=== PATIENT | female | born 2000 | race Caucasian/White ===

== ENCOUNTER 2020-04-29 16:11 | Emergency (ER) | payer OTHER, BC, SELFPAY ==
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
[2020-04-29 17:09] VITALS: BP 132/76; PULSE 88; RESP 16; TEMP 36.2; O2SAT 98
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
[2020-04-29] MEDS: CYCLOBENZAPRINE HCL 5 MG TABLET PO (17:59)
[2020-04-29] MEDS: IBUPROFEN 600 MG TABLET PO (17:59)
[2020-04-29 19:31] VITALS: BP 122/70; PULSE 70; RESP 18; O2SAT 98
== END 2020-04-29 19:32 | disposition home or self-care (01) ==
PROVIDERS: Emergency Provider General Practice
DX: S16.1XXA Strain of muscle, fascia and tendon at neck level, initial encounter (principal); V43.53XA Car driver injured in collision with pick-up truck in traffic accident, initial encounter
CPT/HCPCS: 72125; 99284; A9270

== ENCOUNTER 2022-03-03 14:49 | Outpatient (CLI) | payer BC, SELFPAY ==
--- NOTE | 2022-03-03 15:01 | ECG_ITS ---
Measurements Intervals [place] Rate: 113 P: 60 MO: 138 QRS: 47 QRSD: 86 T: 55 QT: 314 QTc: 431 Interpretive Statements SINUS TACHYCARDIA POSSIBLE LEFT ATRIAL ENLARGEMENT INCOMPLETE RIGHT BUNDLE BRANCH BLOCK BASELINE WANDER- V4 ABNORMAL ECG Electronically Signed On 03-03-2022 15:16:04 CDT by Darío Carpenter D.O.
== END 2022-03-03 14:50 | disposition home or self-care (01) ==
LOC: ANHCARD 14:53
PROVIDERS: PCP Family Medicine; Visit Provider Nurse Practitioner
DX: Z01.818 Encounter for other preprocedural examination (principal); I45.10 Unspecified right bundle-branch block
CPT/HCPCS: 93005

== ENCOUNTER 2023-05-27 10:42 | Outpatient (CLI) | payer BC, SELFPAY ==
[2023-05-27 17:20] LABS: Alanine Aminotransferase 38 U/L (6-35); Alkaline Phosphatase 45 U/L (38-126); Anion Gap 4 mmol/L (8-16); Aspartate Amino Transferase 42 U/L (14-36); Bilirubin,Total 0.5 mg/dL (0.2-1.3); Blood Urea Nitrogen 14 mg/dL (7-17); Calcium 8.7 mg/dL (8.4-10.2); Carbon Dioxide 28 mmol/L (22-30); Chloride 106 mmol/L (98-107); Cholesterol 160 mg/dL (0-200); Estimated Glomerular Filt Rate > 60; Glucose 96 mg/dL (65-110); HDL Direct 32 mg/dL; Potassium 4.8 mmol/L (3.4-5.0); Sodium 138 mmol/L (137-145); Triglycerides 115 mg/dL (<150)
[2023-05-27 17:22] LABS: Basophils Percent Auto 0.4 % (0.2-1.2); Eosinophils Absolute Auto 0.1 K/mm3 (0-0.3); Eosinophils Percent Auto 1.4 % (0-4.4); Hematocrit 41.6 % (37.0-47.0); Hemoglobin 13.4 g/dL (12.0-15.0); Immature Granulocyte Absolute 0.01 K/mm3 (0.00-0.031); Immature Granulocyte Percent A 0.2 % (0-0.5); Lymphocytes Absolute Auto 2.29 K/mm3 (0.9-3.2); Mean Corpuscular HGB Conc 32.2 g/dl (32-36); Mean Corpuscular Hemoglobin 28.8 pg (26-34); Mean Corpuscular Volume 89.3 fl (80-100); Mean Platelet Volume 9.8 fl (7.4-10.4); Monocytes Absolute Auto 0.4 K/mm3 (0.1-0.6); Monocytes Percent Auto 7.5 % (2.6-8.5); Neutrophils Absolute Auto 2.8 K/mm3 (1.3-6.7); Neutrophils Percent Auto 49.5 % (45.5-73.1); Platelet Count Result 256 k/mm3 (150-375); Red Blood Count 4.66 M/mm3 (4.2-5.4); Red Cell Distribution Width 12.4 % (11.5-14.5); White Blood Count 5.6 K/mm3 (4.5-10.0)
[2023-05-27 17:29] LABS: LDL Cholesterol Direct 104 mg/dL
[2023-05-27 17:38] LABS: Vitamin D 25 Hydroxy 41.3 ng/mL
[2023-05-27 17:44] LABS: Thyroid Stimulating Hormone 0.876 uIU/mL (0.465-4.680)
== END 2023-05-27 10:43 | disposition home or self-care (01) ==
LOC: ANHGOSHLAB 10:45
PROVIDERS: PCP Family Medicine; Visit Provider Nurse Practitioner Family
DX: Z00.00 Encounter for general adult medical examination without abnormal findings (principal); Z13.21 Encounter for screening for nutritional disorder; E53.8 Deficiency of other specified B group vitamins; Z13.29 Encounter for screening for other suspected endocrine disorder; Z13.220 Encounter for screening for lipoid disorders; Z13.1 Encounter for screening for diabetes mellitus; I10 Essential (primary) hypertension
CPT/HCPCS: 36415; 80053; 80061; 82306; 82607; 83036; 84443; 85025

== ENCOUNTER 2024-03-01 08:13 | Outpatient (CLI) | payer OTHER, SELFPAY ==
[2024-03-01 19:34] LABS: Basophils Absolute Auto 0.1 K/mm3 (0.0-0.1); Basophils Percent Auto 0.7 % (0.2-1.2); Eosinophils Absolute Auto 0.5 K/mm3 (0-0.3); Eosinophils Percent Auto 7.2 % (0-4.4); Hematocrit 40.1 % (37.0-47.0); Hemoglobin 12.9 g/dL (12.0-15.0); Immature Granulocyte Absolute 0.01 K/mm3 (0.00-0.031); Immature Granulocyte Percent A 0.1 % (0-0.5); Lymphocytes Absolute Auto 2.78 K/mm3 (0.9-3.2); Lymphocytes Percent Auto 39.3 % (18.3-44.2); Mean Corpuscular HGB Conc 32.2 g/dl (32-36); Mean Corpuscular Hemoglobin 29.3 pg (26-34); Mean Corpuscular Volume 90.9 fl (80-100); Mean Platelet Volume 9.5 fl (7.4-10.4); Monocytes Absolute Auto 0.6 K/mm3 (0.1-0.6); Monocytes Percent Auto 8.8 % (2.6-8.5); Neutrophils Absolute Auto 3.1 K/mm3 (1.3-6.7); Neutrophils Percent Auto 43.9 % (45.5-73.1); Platelet Count Result 298 k/mm3 (150-375); Red Blood Count 4.41 M/mm3 (4.2-5.4); Red Cell Distribution Width 12.3 % (11.5-14.5); White Blood Count 7.1 K/mm3 (4.5-10.0)
[2024-03-01 20:33] LABS: Vitamin D 25 Hydroxy 29.8 ng/mL
[2024-03-01 20:41] LABS: Alanine Aminotransferase 17 U/L (6-35); Albumin Level 3.9 g/dL (3.5-5.1); Alkaline Phosphatase 63 U/L (38-126); Anion Gap 5 mmol/L (4-12); Aspartate Amino Transferase 22 U/L (14-36); Bilirubin,Total 0.4 mg/dL (0.2-1.3); Blood Urea Nitrogen 13 mg/dL (7-17); Calcium 9.3 mg/dL (8.4-10.2); Carbon Dioxide 28 mmol/L (22-30); Chloride 109 mmol/L (98-107); Cholesterol 171 mg/dL (0-200); Estimated Glomerular Filt Rate > 60; Glucose 91 mg/dL (65-110); HDL Direct 44 mg/dL; Potassium 4.2 mmol/L (3.4-5.0); Sodium 142 mmol/L (137-145); Triglycerides 111 mg/dL (<150)
[2024-03-01 20:52] LABS: LDL Cholesterol Direct 107 mg/dL
[2024-03-01 21:36] LABS: Hemoglobin A1C 4.9 % (<5.7)
== END 2024-03-01 08:14 | disposition home or self-care (01) ==
LOC: ANHGOSHLAB 08:15
PROVIDERS: PCP Family Medicine; Visit Provider Nurse Practitioner Family
DX: Z00.00 Encounter for general adult medical examination without abnormal findings (principal); I10 Essential (primary) hypertension; E53.8 Deficiency of other specified B group vitamins; Z13.21 Encounter for screening for nutritional disorder; Z13.1 Encounter for screening for diabetes mellitus; Z13.220 Encounter for screening for lipoid disorders; Z13.29 Encounter for screening for other suspected endocrine disorder
CPT/HCPCS: 36415; 80053; 80061; 82306; 82607; 83036; 84443; 85025

== ENCOUNTER 2024-03-16 14:11 | Outpatient (CLI) | payer OTHER, SELFPAY ==
--- NOTE | ~2024-03-16 | XR_ITS ---
EXAMINATION: XR chest 2V 03/16/2024 14:23 INDICATION: Shortness of breath PROCEDURE: 2 view chest COMPARISON: No prior studies for comparison. FINDINGS: The lungs are clear. The cardiomediastinal silhouette is within normal limits. There are no pleural effusions. There is no pneumothorax suspected. IMPRESSION: 1: NO ACUTE CARDIOPULMONARY DISEASE. Reviewed, dictated and finalized at location B.
== END 2024-03-16 14:12 ==
LOC: GOSHIMG 14:11
PROVIDERS: PCP Family Medicine; Visit Provider Nurse Practitioner Family
DX: R06.02 Shortness of breath (principal)
CPT/HCPCS: 71046

== ENCOUNTER 2024-04-04 11:11 | Outpatient (CLI) | payer OTHER, SELFPAY ==
--- NOTE | ~2024-04-04 | CT_ITS ---
EXAMINATION: CT diagnostic chest wo con DATE: 04/04/2024 11:34 INDICATION: R05.9 - Cough, unspecified TECHNIQUE: Computed tomography (CT) of the chest was performed without intravenous contrast. Addition al 3D reconstructions utilizing coronal maximum intensity projection (MIP) were performed. Automated exposure control and iterative reconstruction technique were employed. The dose-length product was 15 5.46 mGy-cm. COMPARISON: None FINDINGS: A 2 <3 mm nodules in the left upper lobe and superior segment of the left lower lobe. No pneumonia, p ulmonary edema or pleural effusion. Heart size is normal. No pericardial effusion. Thoracic aorta is normal in caliber. No pathologically enlarged thoracic lymphadenopathy. Visualized upper abdomen and bones are unremarkable. IMPRESSION: 1. A a few likely benign <3 mm pulmonary nodules which given size and patient age are most likely seq uela of old granulomatous disease. No pneumonia or other acute cardiopulmonary disease. Reviewed, dictated and finalized at location B. IMPRESSION: 1. A a few likely benign <3 mm pulmonary nodules which given size and patient a ge are most likely sequela of old granulomatous disease. No pneumonia or other acute cardiopulmonary disease.
== END 2024-04-04 11:12 ==
PROVIDERS: PCP Family Medicine; Visit Provider Nurse Practitioner Family
DX: R05.9 Cough, unspecified (principal); R91.8 Other nonspecific abnormal finding of lung field
CPT/HCPCS: 71250

== ENCOUNTER 2024-05-23 12:37 | Outpatient (CLI) | payer OTHER, SELFPAY ==
[2024-05-23 15:57] LABS: Immunoglobulin A 114 mg/dL (70-400); Immunoglobulin G 1148 mg/dL (700-1600); Immunoglobulin M 82 mg/dL (40-230)
[2024-05-26 22:53] LABS: Immunoglobulin G, Serum 1141 mg/dL (600-1640); Immunoglobulin G1 594 mg/dL (382-929); Immunoglobulin G2 378 mg/dL (241-700); Immunoglobulin G3 54 mg/dL (22-178); Immunoglobulin G4 106.1 mg/dL (4.0-86.0)
== END 2024-05-23 12:38 | disposition home or self-care (01) ==
LOC: ANHGOSHLAB 12:39
PROVIDERS: PCP Nurse Practitioner Family; Visit Provider Physician Assistant
DX: J30.9 Allergic rhinitis, unspecified (principal); J06.9 Acute upper respiratory infection, unspecified
CPT/HCPCS: 36415; 82784; 82785; 82787; 86003

== ENCOUNTER 2025-03-01 07:55 | Outpatient (CLI) | payer OTHER, SELFPAY ==
--- OUTSIDE RECORDS SUMMARY | 2025-03-01 07:57 | XMS_ITS | Referral Summary ---
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 Role Phone No, Physician Primary Care Provider [phone] Allergies No known active allergies Medications amitriptyline (ELAVIL) 25 mg tablet Take 50 mg by mouth nightly 03/28/2020 Active Active Problems Problem Noted Date Diagnosed Date Ronak-Schlatter's disease 10/26/2011 Contusion of knee 09/09/2010 Social History Tobacco Use Types Packs/Day Years Used Date Smoking Tobacco: Never Smokeless Tobacco: Never Alcohol Use Standard Drinks/Week Comments Yes 0 (1 standard drink = 0.6 oz pur e alcohol) Personal Safety Answer Date Recorded Getting School Help Needed Not on file 12/17 Comments Unknown Sex and Gender Information Value Date Recorded Sex Assigned at Not on file 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 Gender Identity Not on file Sexual Orientation Not on file Last Filed Vital Signs Vital Sign Reading Time Taken Comments Blood Pressure 136/85 05/09/2020 2:57 PM CDT Pulse 105 05/09/2020 2:57 PM CDT Temperature 37.1 C (98.7 F) 05/09/2020 2:57 PM CDT Respiratory Rate - - Oxygen Saturation - - Inhaled Oxygen Concentration - - Weight 58.7 kg (129 lb 6.4 oz) 05/09/2020 2:57 P M CDT Height 160 cm (5' 3) 05/09/2020 2:57 PM CDT Body Mass Index 22.92 05/09/2020 2:57 PM CDT Plan of Treatment Not on file Insurance [employer] COMPENSATION GENERIC Care Teams Metal Ceiling Builder Relationship Specialty Start Date End Date No, Physician PCP - General 04/02/20
--- OUTSIDE RECORDS SUMMARY | 2025-03-01 07:57 | XMS_ITS | Clinical Summary ---
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
[2025-03-01 11:13] LABS: Basophils Percent Auto 0.3 % (0.2-1.2); Eosinophils Absolute Auto 0.1 K/mm3 (0-0.3); Hematocrit 39.7 % (37.0-47.0); Hemoglobin 12.6 g/dL (12.0-15.0); Immature Granulocyte Absolute 0.01 K/mm3 (0.00-0.031); Immature Granulocyte Percent A 0.2 % (0-0.5); Lymphocytes Percent Auto 39.1 % (18.3-44.2); Mean Corpuscular HGB Conc 31.7 g/dl (32-36); Mean Corpuscular Hemoglobin 28.7 pg (26-34); Mean Corpuscular Volume 90.4 fl (80-100); Mean Platelet Volume 8.9 fl (7.4-10.4); Monocytes Absolute Auto 0.5 K/mm3 (0.1-0.6); Neutrophils Absolute Auto 2.9 K/mm3 (1.3-6.7); Neutrophils Percent Auto 49.4 % (45.5-73.1); Platelet Count Result 290 k/mm3 (150-375); Red Blood Count 4.39 M/mm3 (4.2-5.4); Red Cell Distribution Width 12.4 % (11.5-14.5); White Blood Count 5.9 K/mm3 (4.5-10.0)
[2025-03-01 11:24] LABS: Alanine Aminotransferase 17 U/L (6-35); Albumin Level 4.1 g/dL (3.5-5.1); Alkaline Phosphatase 59 U/L (38-126); Anion Gap 8 mmol/L (4-12); Aspartate Amino Transferase 30 U/L (14-36); Bilirubin,Total 0.3 mg/dL (0.2-1.3); Blood Urea Nitrogen 15 mg/dL (7-17); Calcium 9.3 mg/dL (8.4-10.2); Carbon Dioxide 26 mmol/L (22-30); Chloride 105 mmol/L (98-107); Estimated Glomerular Filt Rate > 60; Glucose 85 mg/dL (65-110); Potassium 4.1 mmol/L (3.4-5.0); Sodium 139 mmol/L (137-145)
[2025-03-01 11:41] LABS: Vitamin D 25 Hydroxy 22.6 ng/mL
== END 2025-03-01 07:56 | disposition home or self-care (01) ==
LOC: ANHGOSHLAB 07:56
PROVIDERS: PCP Nurse Practitioner Family; Visit Provider Nurse Practitioner Family
DX: Z00.00 Encounter for general adult medical examination without abnormal findings (principal); E55.9 Vitamin D deficiency, unspecified
CPT/HCPCS: 36415; 80053; 82306; 85025

== ENCOUNTER 2025-07-20 09:09 | Outpatient (CLI) | payer OTHER, SELFPAY ==
--- NOTE | ~2025-07-20 | MR_ITS ---
EXAMINATION: MR knee RT wo con DATE: 07/20/2025 09:45 INDICATION: Right knee pain. TECHNIQUE: Magnetic resonance imaging (MRI) of the right knee was performed without intravenous contrast. Sequences included axial PD-weighted FS FSE, coronal PD-weighted FSE and PD-weighted FS FSE, sagittal PD-weighted FSE, and sagittal T2-weighted FS FSE. COMPARISON: None. FINDINGS: Medial compartment: Medial meniscus is normal. Medial compartment cartilage is normal. Lateral compartment: Lateral meniscus is normal. Lateral compartment cartilage is normal. Patellofemoral compartment: Patellar cartilage is normal. Trochlear cartilage is normal. Ligaments and tendons: The anterior and posterior cruciate ligaments are normal. Medial collateral ligament is normal. There are changes of prior sprain of lateral collateral ligament characterized by increased signal intensity proximally. The extensor mechanism is normal. Fluid: There is a small knee joint effusion. There is mild prepatellar and superficial infrapatellar bursitis. IMPRESSION: 1. Small knee joint effusion. Reviewed, dictated and finalized at location E.
== END 2025-07-20 09:10 | disposition home or self-care (01) ==
LOC: MICIMG 09:10
PROVIDERS: PCP Nurse Practitioner Family; Visit Provider Orthopaedic Surgery
DX: M25.461 Effusion, right knee (principal); M25.561 Pain in right knee
CPT/HCPCS: 73721